=== PATIENT | female | born 1965 | race Caucasian/White ===

== ENCOUNTER → 2017-07-02 14:34 | Outpatient (CLI) | payer BC ==
[2013-04-13 09:22] VITALS: BMI 25.1
[~2017-07-02 14:34] MED LIST: CLARITIN 10 MG10 MG PO; EFFEXOR XR37.5 MG PO; RESTORIL15 MG PO
== END | disposition home or self-care (01) ==
LOC: D.CT 14:34
DX: R91.1 Solitary pulmonary nodule (principal)

== ENCOUNTER → 2017-09-09 09:31 | Outpatient (CLI) | payer BC ==
[2013-04-13 09:22] VITALS: BMI 25.1
--- NOTE | 2017-09-20 09:15 | EC ---
PATIENT:DIAMOND MAY DATE OF SERVICE: 09/09/17 SEX: F MEDICAL RECORD: [id number] DATE OF : 69 LOCATION:[facility] AGE OF PATIENT: 52 ADMISSION DATE: 09/09/17 REFERRING PHYSICIAN: INTERPRETING PHYSICIAN: DANICA DOMINGO MD ECHOCARDIOGRAM REPORT ECHO CHARGES 5 ECHO LIMITED CLINICAL DIAGNOSIS: CHEST PAIN/PALPITATION/SOB ECHOCARDIOGRAPHIC MEASUREMENTS (adult normal given) AC root (d.<3.7cm) 2.7 cm LV Septum d (<1.2 cm> 1.3 cm Valve Excursion 1.3 cm LV Septum (systole) 1.4 cm Left Atria (s.<4.0cm> 3.1 cm LVPW d(<1.2cm) 1.2 cm RV (d.<2.3cm) 3.2 cm LVPW (sytole) 1.3 cm LV diastole(<5.6CM) 3.7 cm MV E-F(>70mm/sec) cm LV systole 2.5 cm LVOT Diameter 1.8 cm MV exc.(>10mm) 1.2 cm Est.ejection fraction (50-75%) % Pericardial Effusion N DOPPLER: LVIT cm/sec A 69.0 cm/sec E 64.0 cm/sec LA cm/sec RVSP mmHg LVOT 100 cm/sec AOP1/2T m/s Asc. Ao 134 cm/sec RVOT 63 cm/sec RA cm/sec PA 84 cm/sec AV Gradient Peak 7.23 mmHg AV Mean 3.38 mmHg AV Area 2.5 cm MV Gradient Peak 2.81 mmHg MV Mean 0.93 mmHg MV Area cm COMMENTS: Azure Architect: Kellen [place] Executive Advisor: Gutierrez Domingo TAPE# PACS DATE OF SERVICE: 09/09/2017 PROCEDURE: Transthoracic echocardiogram. FINDINGS: 1. There is mild left ventricular hypertrophy with inflow characteristics consistent with mild diastolic dysfunction. 2. Mitral valve is structurally normal. No significant mitral regurgitation. 3. The tricuspid valve appears to be structurally normal. 4. The right ventricle is mildly enlarged. ECHOCARDIOGRAM REPORT [id number] DIAMOND MAY 5. The right ventricular systolic pressure is normal. 6. The aortic valve is structurally normal. 7. The IVC is normal. 8. The right atrium is normal size, normal function. There is no pericardial effusion. Pulmonic valve is normal. CONCLUSIONS: The patient has evidence of mild left ventricular hypertrophy and diastolic dysfunction. Otherwise, a normal echocardiogram with a preserved ejection fraction of 60% to 65%. TRANSINT:[id number] Voice Confirmation ID: [id number] DOCUMENT ID: [id number] DANICA DOMINGO MD at 0915 CC: [id number] DICTATION DATE: 09/10/17 0832 [employer] SUPERINTENDENT: 09/10/17 1003 DEP CLI 09/09/17 [id number] [place] [address]
== END | disposition home or self-care (01) ==
LOC: D.ECHO 09-06 10:30
DX: R07.9 Chest pain, unspecified (principal); R00.2 Palpitations; R06.02 Shortness of breath

== ENCOUNTER → 2017-12-31 13:33 | Outpatient (CLI) | payer BC ==
[2013-04-13 09:22] VITALS: BMI 25.1
[2017-12-31 16:15] LABS: BASOPHILS 0.6 % (0-2); EOSINOPHILS 2.6 % (0-7); HEMATOCRIT 41.8 % (36.0-48.0); HEMOGLOBIN 14.1 g/dL (12-16); IMMATURE GRANULOCYTES 0.3 % (0-5); LYMPHOCYTES 31.2 % (15-50); MCH 31.8 pg (26.0-34.0); MCHC 33.7 g/dL (31.0-37.0); MCV 94.1 fL (80.0-100.0); MEAN PLATELET VOLUME 9.6 fL (7.4-10.4); MONOCYTES 6.8 % (2-11); NEUTROPHILS 58.5 % (40-80); PLATELET COUNT 234 10x3/uL (130-400); RBC 4.44 10x6/uL (4.00-5.40)
[2018-01-03 10:12] LABS: ANA REFLEX - DIRECT Negative (Negative)
[2018-01-03 13:12] LABS: IMMUNOGLOBULIN G 887 mg/dL (700-1600)
[2018-01-03 15:22] LABS: IMMUNOGLOBULIN A 149 mg/dL (87-352)
[2018-01-06 03:11] LABS: IMMUNOGLOBULIN E 49 IU/mL (0-100)
[2018-01-06 19:12] LABS: FUNGAL - ASP FLAVUS Negative (Neg:<1:1); FUNGAL - ASP NIGER Negative (Neg:<1:1); FUNGAL - ASPER FUMIGATUS Negative (Neg:<1:1)
== END | disposition home or self-care (01) ==
LOC: D.RT 13:33
PROVIDERS: Internal Medicine Pulmonary Disease
DX: R91.8 Other nonspecific abnormal finding of lung field (principal)

== ENCOUNTER → 2018-10-04 11:32 | Outpatient (CLI) | payer BC ==
[2013-04-13 09:22] VITALS: BMI 25.1
== END | disposition home or self-care (01) ==
LOC: D.CT 11:30
DX: R91.8 Other nonspecific abnormal finding of lung field (principal)